=== PATIENT | female | born 1980 | race Caucasian/White ===

== ENCOUNTER 2023-09-13 03:52 | Day surgery (SDC) | payer OTHER, SELFPAY ==
--- NOTE | 2023-09-11 13:14 | PC.NURSE ---
Report to the Outpatient Waiting Room, entrance under the green pavilion located off [facility], at time _1100__ on date _09/13/23__. Planned Procedure Time: _1300_. Time changes happen often and if your time is changed the preop area will call you the afternoon before. - You and your visitor will be asked to self-screen and do not enter if you have any COVID symptoms. - A mask is optional within the hospital at this time. Patients may have clear liquids (water, carbonated beverages, clear teas, apple juice) until 3 hours prior to surgery with a maximum of 20 ounces. - No food from midnight until time of surgery - Infants may have breast milk until 4 hours before surgery, infant formula 6 hours prior to surgery. - Children will be allowed to drink immediately following surgery. If applicable, please bring a bottle or sippy cup to assist with drinking. Juice, water, soda, and popsicles are readily available. For infants on formula, please bring formula the day of surgery. Pacifiers are allowed. Take the following medications with a SIP of water the morning of surgery: dexmethylphenidate flexeril and maxalt if needed DO NOT STOP ANY OF YOUR OTHER PRESCRIPTION MEDICATIONS PRIOR TO SURGERY ?EXCEPT THE FOLLOWING Medications to discontinue per physician suppliments/ vitamins Date to take last dose___09/01/23___ Please no make-up, nail georgian, hairspray, perfume, deodorant, or body powder the day of surgery. No jewelry (including any body piercings) or valuables the day of surgery, leave them at home. Please take a shower or bath the night before, or the morning of, surgery with HIBICLENS antibacterial soap. Wear comfortable, loose fitting clothing. Children are encouraged to wear pajamas. - Jewelry must be removed prior to entering the operating room. Rings and piercings that are not removed may be cut off. - The hospital will not accept responsibility for valuables. - Please leave all valuables, including medications, at home the day of surgery. If you are going home after surgery, a licensed tow bar driver must drive you home. - NO public transportation without another adult if you receive anesthesia. - We recommend that an adult stay with you for 24 hours following discharge. - We also recommend that you do not drive, make important decision, drink alcoholic beverages, or take any drugs that were not prescribed by your health care provider for at least 24 hours after your discharge time. For Pediatric surgeries, we recommend two adults accompany the child home. Follow any additional instructions given to you from your surgeon. If you or anyone in your household have experienced Covid symptoms in the past week, please notify your surgeon or the nurse liaison at the phone number below for possible testing. Telephone instructions given to _PATIENT and asked if any additional questions and then verbalized understanding. Patient advised to call surgeon office or pre surgery nurse liaison [phone] if any additional questions.
[2023-09-11 13:21] VITALS: BMI 23.8
[2023-09-13] MEDS: ACETAMINOPHEN 500 MG TABLET 1000 MG PO (11:10)
[2023-09-13] MEDS: LACTATED RINGERS 1,000 ML 30 ML IV CONT (11:15)
[2023-09-13 11:18] VITALS: BP 93/53; PULSE 60; RESP 16; TEMP 36.8; O2SAT 100
[2023-09-13] MEDS: KETOROLAC 15 MG/ML VIAL (*BKC) IV PUSH (12:05)
--- NOTE | 2023-09-13 12:06 | WPDHPUPDATE1 ---
History and Physical Update Update Date/Time: 09/13/23 12:06 History and Physical has been reviewed, including an updated exam of the patient. There are NO changes in the patient's condition. Risks, benefits, and alternatives have been discussed and questions answered. Patient agrees to proceed with procedure.
--- NOTE | 2023-09-13 12:07 | WPDANESEPPF ---
Anes - Initial Pre Proc Eval Procedure: Operation Date: 09/13/23 13:00 Proposed Procedures p Rectal Exam Under Anesthesia, Excision of Multiple Anal Skin Tags - Matheus Burnham DO Date/Time: 09/13/23 12:07 Surgeon: Matheus Burnham DO Pre Op Diagnosis: Residual Hemorrhoid Skin Tags Patient Data Age: 43 Gender: F Height: 1.7 m Weight: 68.4 kg Last Vital Signs Temp 36.8 C 09/13/23 11:18 Pulse 60 09/13/23 11:18 Resp 16 09/13/23 11:18 BP 93/53 L 09/13/23 11:18 Pulse Ox 100 09/13/23 11:18 O2 Del Method Room Air 09/13/23 11:18 Allergies Allergy/AdvReac Type Severity Reaction Status Date / Time No Known Allergies Allergy Verified 09/13/23 10:55 Home Medications Medication Instructions Recorded Confirmed Type dexmethylphenidate 10 mg tablet 10 mg PO QAM 08/15/23 09/13/23 History (Focalin) dexmethylphenidate 5 mg tablet 5 mg PO DAILY 08/15/23 09/13/23 History (Focalin) multivitamin 1 tablet PO DAILY 08/15/23 09/13/23 History calcium-vitamin D3-vitamin K 500 1 tablet PO BID 09/11/23 09/13/23 History mg-100 unit-40 mcg chewable tablet cyclobenzaprine 5 mg tablet 5 mg PO TID PRN MIGRAINES 09/11/23 09/11/23 History rizatriptan 5 mg tablet 5 mg PO ONCE PRN MIGRAINES 09/11/23 09/11/23 History Patient hx anesthesia problems: none Family hx anesthesia problems: none Results Review: All pre-operative results and documents have been reviewed as part of the pre-operative evaluation. 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 Informed Consent: The patient's anesthetic plan and its attendant risks and benefits were discussed with the patient/family/POA. Questions were solicited and answers provided to the satisfaction of the patient/family/POA.
[2023-09-13] MEDS: ceFAZolin 2 GM/D5W 50 ML 2 GM/50 ML BAG IVPB (12:19)
[2023-09-13] MEDS: BUPivacaine HCL 0.5% 10 ML AMP 30 ML INFILTRATE (12:33)
--- NOTE | 2023-09-13 13:02 | W.PM.PROC2 ---
Procedure Note - Detailed Date of Procedure 09/13/23 Pre-op Diagnosis Residual Hemorrhoid Skin Tags Post-op Diagnosis Other (Prolapsing internal and external hemorrhoids, residual hemorrhoid skin tags) Procedure Performed 1. Rectal exam under anesthesia 2. Internal and external hemorrhoidectomy in right posterior location 3. Excision of residual hemorrhoid skin tags in the anterior midline and posterior midline Surgeon Matheus Burnham, DO Anesthesia MAC and Local (0.5% bupivacaine with epinephrine) Indications This is a 43-year-old woman who presented with perianal skin tags that frequently become irritated and bleed. She had been experiencing some discomfort related to the skin tags and they would frequently get irritated with bowel movements and wiping. She noted occasional blood. The patient was found to have multiple residual hemorrhoid skin tags but no evidence of thrombosed external hemorrhoids or large prolapsing internal hemorrhoids. Discussions were made with the patient about treatment options and decision was made to proceed with rectal exam under anesthesia with excision of residual hemorrhoid skin tags. Findings Rectal exam under anesthesia was performed. The patient was found to have multiple residual hemorrhoid skin tags. There was 1 in the anterior midline and posterior midline. She was also noted to have prolapsing internal hemorrhoid tissue and external hemorrhoid tissue in the right posterior location. Decision was made to proceed with excision of the residual hemorrhoid skin tags and also excision of the internal and external hemorrhoid in the right posterior location. The specimens were sent to the lab for pathology. Description of Procedure Procedure as well as risks, benefits, and alternatives were discussed with the patient. Written consent was obtained and placed in chart prior to procedure. Patient was brought back to surgical suite. She was placed supine on operating table. Time-out was done to confirm patient and procedure. IV sedation was then administered by the anesthesia department. She was placed in dorsal lithotomy position and her perirectal region was prepped and draped in sterile fashion using Betadine prep. Digital rectal exam was initially performed. 0.5% bupivacaine with epinephrine was then infiltrated locally around the perianal region. Careful perianal exam was performed and residual hemorrhoid skin tags were noted in the anterior midline and posterior midline. There was also a prolapsing internal and external hemorrhoid in the right posterior location. A Hill-Ulloa anoscope was then inserted and the anal rectal canal was carefully inspected. No other internal abnormalities were noted. The residual hemorrhoid skin tags were excised using curved Cunha scissors. These were sent to the lab for pathology. Hemostasis was then achieved with electrocautery. The anterior midline region did not appear to be too widely open, therefore this was left open rather than stitching it closed. Posterior midline did have a gap between the anoderm and anal mucosa therefore this was closed using 3-0 chromic simple interrupted sutures. Decision was then made to also proceed with internal and external hemorrhoidectomy in the right posterior location. The anoscope was oriented so that the internal hemorrhoid tissue could be adequately visualized. A 2-0 chromic suture was placed at the apex of the hemorrhoid bundle. An elliptical incision was then made around the external hemorrhoid tissue and this was carried up into the anal mucosa. A curved clamp was then placed across the hemorrhoid tissue in the hemorrhoid tissue was cut away using curved Cunha scissors. The 2-0 chromic suture was then run from the apex of the hemorrhoid bundle distally to the anal verge. The suture was then run back in a running locking fashion back to the apex of the hemorrhoid bundle. The suture was then tied down in place. This area was inspecte
[2023-09-13 13:03] VITALS: BP 99/53; PULSE 51; RESP 12; O2SAT 100
[2023-09-13 13:30] VITALS: BP 91/48; PULSE 45; RESP 12; O2SAT 100
[2023-09-13 14:00] VITALS: BP 87/31; PULSE 55; RESP 12
[2023-09-13 14:15] VITALS: BP 93/43; PULSE 66; RESP 14
[2023-09-13] MEDS: oxyCODONE HCL (*CRX) 5 MG TAB IR PO (14:23)
== END 2023-09-13 14:25 | disposition home or self-care (01) ==
PROVIDERS: PCP Nurse Practitioner; Visit Provider Surgery
PROC: (CPT 46255; principal; 2023-09-13 13:00)
DX: K64.8 Other hemorrhoids (principal); K64.4 Residual hemorrhoidal skin tags; Z98.84 Bariatric surgery status; Z87.891 Personal history of nicotine dependence
CPT/HCPCS: 46255; 46230; 88304; 88342; A9270; J0690; J1100; J1885; J2250; J2405; J2704; J3010; J7120